=== PATIENT | male | born 1960 | race Two or more races ===

== ENCOUNTER 2018-03-01 10:44 | Emergency (ER) | payer SELFPAY ==
[~2018-03-01] VITALS: Ht 157.5 cm; Wt 63.0 kg
--- NOTE | 2018-03-01 11:03 | Emergency Room Report ---
History of Present Illness General Chief Complaint: Medical Clearance Source: Patient Present Illness HPI The patient presents with 2 problems. One is that he had a seizure yesterday. He has seizures and hasn't been treated for 6 months. He was taking Keppra. No head or tongue trauma. The second problem is he has some right-sided chest pain from rib fractures 6 years ago. There is no recent trauma. He denies any cough. He's not taking any pain medication at the moment. He reports the pain at 10/10, constant, more positional and pleuritic, aching and sharp. The patient vomited once yesterday. Denies any blood or melena. The patient also denies fevers chills dysuria. No SI or HI. No headache. No extremity pain or weakness. Allergies: Coded Allergies: No Known Allergies (Unverified , 03/01/18) Patient History Past Medical History: see triage record Social History: Reports: smoking, alcohol use Social History Narrative in custody for fighting Reviewed Nursing Documentation: PMH: Agreed; PSxH: Agreed Nursing Documentation-PMH Hx Gastrointestinal Problems: Yes - hernia Hx Seizures: Yes Review of Systems All Other Systems: negative except mentioned in HPI Physical Exam Vital Signs Date Time Temp Pulse Resp B/P (MAP) Pulse Ox O2 Delivery O2 Flow Rate FiO2 03/01/18 10:50 97.5 105 18 96/51 95 Room Air 97.5 Sp02 EP Interpretation: reviewed, normal General Appearance: well appearing, no apparent distress, GCS 15 Head: normocephalic, atraumatic Eyes: bilateral eye PERRL, bilateral eye EOMI, bilateral eye Scleral Injection ENT: hearing grossly normal, normal voice, moist mucus membranes - no lingual trauma Neck: full range of motion, supple Respiratory: lungs clear, normal breath sounds, no respiratory distress, speaking full sentences, other - CWT R to percussion, no crepetance Cardiovascular #1: regular rate, rhythm, no edema Gastrointestinal: normal inspection Musculoskeletal: normal inspection, back normal, gait/station normal, no calf tenderness Neurologic: alert, oriented x3, normal gait, grossly normal Psychiatric: mood/affect normal Skin: no rash Medical Decision Making Diagnostic Impression: Primary Impression: Alcohol abuse Additional Impressions: H/O tonic-clonic seizures Right-sided chest pain ER Course Patient reports seizure yesterday with non-compliance and chronic R chest pain. DDx; uncontrolled seizures, non-compliance, alcohol withdrawal seizures amongst others. The chest pain is reported chronic and based on exam, no imaging indicated at this time. Patient treated with Keppra and Tylenol. Patient stable for outpatient observation and treatment. Last Vital Signs Date Time Temp Pulse Resp B/P (MAP) Pulse Ox O2 Delivery O2 Flow Rate FiO2 03/01/18 11:24 98.4 80 18 96/51 95 Room Air 98.4 Status: improved Disposition: D/C TO LAW ENFORCEMENT IN [facility]UST Condition: Improved Scripts Acetaminophen (Tylenol) 325 Mg Tablet 650 MG ORAL Q6H PRN for Prn Pain/Headache/Temp > 101, #20 TAB 0 Refills Prov: Davin Mar M.D. 03/01/18 Levetiracetam (Keppra) 250 Mg Tablet 500 MG ORAL EVERY 12 HOURS, #50 TAB 0 Refills Prov: Davin Mar M.D. 03/01/18 Davin Mar M.D. March 01, 2018 11:03
[2018-03-01] MEDS ORDERED: TYLENOL325 MG ORAL (11:05)
[2018-03-01] MEDS ORDERED: KEPPRA500 MG ORAL (11:05)
[2018-03-01 11:24] VITALS: BP_SYST 155; BP_SYST 96; BP_DIAS 51; BP_DIAS 85
== END 2018-03-01 11:26 ==
LOC: EMR 11:03
DX: F10.10 Alcohol abuse, uncomplicated (principal); G40.409 Other generalized epilepsy and epileptic syndromes, not intractable, without status epilepticus; R07.9 Chest pain, unspecified; Z91.14 Patient's other noncompliance with medication regimen
CPT/HCPCS: 80299; 99283